=== PATIENT | male | born 1970 | race Caucasian/White ===

== ENCOUNTER 2016-06-08 16:32 | Emergency (ER) | payer MEDICAID ==
[2016-06-08 16:39] VITALS: O2SAT 95
[2016-06-08 19:51] LABS: COLOR YELLOW; LEUKOCYTE ESTERASE,URINE NEGATIVE (NEGATIVE); NITRITE,URINE NEGATIVE (NEGATIVE)
--- NOTE | 2016-06-08 19:58 | US ---
Left lower extremity venous Doppler examination. HISTORY: Pain. TECHNIQUE: Sonographic evaluation of the left lower extremity venous system was performed utilizing p ulsed and color flow Doppler evaluation along with compression and Valsalva maneuvers. FINDINGS: The deep venous system of left lower extremity is widely patent without evidence of venous thrombosis. Incidental note of mildly prominent lymph nodes within the left groin similar to prior examination of January 01, 2016 IMPRESSION: 1. No evidence of deep venous thrombosis, left lower extremity. Results called to Manny Mcconnell PA-C, at 8:00 PM.
[2016-06-08] MEDS ORDERED: KETOROLAC 15 MG/1 ML SDV IVP ONE (20:02)
--- NOTE | 2016-06-08 20:02 | EDPHY ---
H & P Stated Complaint: l leg pain into groin/has had mrsa in same leg this summer/ denies redness Time Seen by Provider: 06/08/16 17:26 HPI/ROS: CHIEF COMPLAINT: left leg pain HISTORY OF PRESENT ILLNESS: 46-year-old male presents emergency department complaining of left inner thigh pain radiating up into his groin intermittently x1 week that has been worse today. He denies fevers or chills, no redness or swelling. He denies urinary frequency, urgency or dysuria, no scrotal swelling or tenderness. Patient denies trauma, reports it feels similar to when he had an infection last year. Patient has not taken any medication for this. REVIEW OF SYSTEMS: A comprehensive 10 point review of systems is otherwise negative aside from elements mentioned in the history of present illness. Source: Patient Exam Limitations: No limitations - Personal History Current Tetanus/Diphtheria Vaccine: Yes Tetanus Vaccine Date: 01/2013 - Medical/Surgical History Hx Asthma: No Hx Chronic Respiratory Disease: No Hx Diabetes: No Hx Cardiac Disease: No Hx Renal Disease: No Hx Cirrhosis: No Hx Alcoholism: No Hx HIV/AIDS: No Hx Splenectomy or Spleen Trauma: No Other PMH: psh- RFA 2013 now chronic pain in low back & right knee. hep C. inguinal hernia repair. spider bite Jun 2012 - MRSA. HTN. PTSD, depression. - Social History Smoking Status: Former smoker - Physical Exam Exam: Physical Exam Gen: Alert and Oriented, NAD HEENT: PERRL, moist mucous membranes NECK: no meningismus CV: regular rate and regular rhythm PULM: CTAB, no wheezes ABDOMEN: soft, non tender to palpation, BS present : No scrotal swelling, erythema, tenderness, no lesions, circumcised penis with no discharge, redness, lesions BACK: No CVA tenderness NEURO: Neurologically grossly intact EXTREMITIES: normal appearing, left inner thigh with no erythema, mild tenderness to palpation to hip flexors and tenderness with straight leg raise, full full range of motion of left hip and knee, sensation intact to light touch , no lesions, no erythema, no warmth SKIN: no rash or break in skin on exposed skin PSYCH: answers questions appropriately. Constitutional: Initial Vital Signs Temperature (C) 36.7 C 06/08/16 16:36 Heart Rate 94 06/08/16 16:36 Respiratory Rate 16 06/08/16 16:36 Blood Pressure 165/107 H 06/08/16 16:36 O2 Sat (%) 95 06/08/16 16:36 O2 Delivery Mode Room Air Allergies/Adverse Reactions: hydrocodone [Hydrocodone] Allergy (Mild, Verified 06/08/16 16:34) Vomiting acetaminophen [From Tylenol] Allergy (Verified 06/08/16 16:34) Penicillins Allergy (Verified 06/08/16 16:34) Home Medications: Medication Instructions Recorded Flexeril 06/08/16 GABAPENTIN 06/08/16 Lisinopril 06/08/16 Naprosyn 06/08/16 Medical Decision Making ED Course/Re-evaluation: IV established, CBC, chemistry panel and urinalysis obtained all within normal. Ultrasound left lower extremity is negative for DVT or abscess. Patient is given 15 mg of IV Toradol, he is encouraged to use a heating pad or ice whichever feels better, ibuprofen 600 mg every 8 hours with food for pain and he is to follow up with this primary care doctor for re-evaluation for symptoms that are not improving. He is given strict return precautions for any fevers, redness, swelling, new symptoms or concerns. Differential Diagnosis: Diagnosis considered but not limited to muscle strain, cellulitis, infection - Data Points Laboratory Results: Laboratory Results 06/08/16 19:35 06/08/16 19:35 06/08/16 19:35 WBC 7.44 10^3/uL (3.80-9.50) RBC 5.34 10^6/uL (4.40-6.38) Hgb 14.8 g/dL (13.7-17.5) Hct 44.0 % (40.0-51.0) MCV 82.4 fL (81.5-99.8) MCH 27.7 L pg (27.9-34.1) MCHC 33.6 g/dL (32.4-36.7) RDW 13.1 % (11.5-15.2) Plt Count 256 10^3/uL (150-400) MPV 10.2 fL (8.7-11.7) Neut % (Auto) 43.7 % (39.3-74.2) Lymph % (Auto) 43.8 % (15.0-45.0) [place] % (Auto) 8.2 % (4.5-13.0) Eos % (Auto) 3.1 % (0.6-7.6) Baso % (Auto) 1.1 % (0.3-1.7) Nucleat RBC Rel Count 0.0 % (0.0-0.2) Absolute Neuts (auto) 3.25 10^3/uL (1.70-6.50) Absolute Lymphs (auto) 3.26 H 10^3/uL (1.00-3.00) Absolute Monos (auto) 0.61 10^3/uL (0.30-0.80) Absolute Eos (auto) 0.23 10^3/uL (0.03-0.40) Absolute Basos (auto) 0.08 10^3/uL (0.02-0.10) Absolute Nucleated RBC 0.00 10^3/uL (0-0.01) Immature Gran % 0.1 % (0.0-1.1) Immature Gran # 0.01 10^3/uL (0.00-0.10) Sodium 139 mEq/L (134-144) Potassium 4.6 mEq/L (3.5-5.2) Chloride 104 mEq/L (97-110) Carbon Dioxide 26 mEq/l (22-31) Anion Gap 9 mEq/L (8-16) BUN 16 mg/dL (7-23) Creatinine 0.9 mg/dL (0.7-1.3) Estimated GFR > 60 Glucose 115 H mg/dL (70-100) Calcium 8.9 mg/dL (8.5-10.4) Urine Color YELLOW Urine Appearance CLEAR Urine pH 7.0 (5.0-7.5) Ur Specific [place] 1.019 (1.002-1.030) Urine Protein NEGATIVE (NEGATIVE) Urine Ketones NEGATIVE (NEGATIVE) Urine Blood NEGATIVE (NEGATIVE) Urine Nitrate NEGATIVE (NEGATIVE) Urine Bilirubin NEGATIVE (NEGATIVE) Urine Urobilinogen NEGATIVE EU (0.2-1.0) Ur Leukocyte Esterase NEGATIVE (NEGATIVE) Ur Culture Indicated? NOT INDICATED (NI) Urine Glucose NEGATIVE (NEGATIVE) Medications Given: Discontinued Medications Ketorolac Tromethamine (Toradol) 15 mg IVP EDNOW ONE Stop: 06/08/16 20:03 Last Admin: 06/08/16 20:58 Dose: 15 mg Lisinopril (Zestril) 40 mg PO ONCE ONE Stop: 06/08/16 21:04 Last Admin: 06/08/16 21:04 Dose: 40 mg Departure - Departure Disposition: Home, Routine, Self-Care Clinical Impression: Left leg pain Condition: Good Instructions: Leg Pain (ED) Additional Instructions: Ice or heat whichever feels better, take 600 mg of ibuprofen every 8 hours with food for 3-5 days, follow up with your primary care doctor for symptoms that are not improving in the next 3-5 days, return to the emergency department for worsening symptoms, redness, swelling, fevers, any other questions or concerns. Referrals: Ariana Reyes MD [Primary Care Provider] - As per Instructions
[2016-06-08 20:04] LABS: % IMMATURE GRANULYOCYTES 0.1 % (0.0-1.1); ABSOLUTE IMMATURE GRANULOCYTES 0.01 10^3/uL (0.00-0.10); ADD DIFF? NO; ADD MORPH? NO; ADD SCAN? NO; ATYPICAL LYMPHOCYTE FLAG 10 (0-99); FRAGMENT RBC FLAG 0 (0-99); HEMOGLOBIN 14.8 g/dL (13.7-17.5); LEFT SHIFT FLG 0 (0-99); LIPEMIA HEMOLYSIS FLAG 80 (0-99); MEAN CELL HEMOGLOBIN 27.7 pg (27.9-34.1); MEAN CELL HEMOGLOBIN CONCENTR. 33.6 g/dL (32.4-36.7); MEAN CELL VOLUME 82.4 fL (81.5-99.8); MEAN PLATELET VOLUME 10.2 fL (8.7-11.7); PLATELET CLUMPS FLAG 0 (0-99); PLATELET COUNT 256 10^3/uL (150-400); RED BLOOD CELL COUNT 5.34 10^6/uL (4.40-6.38); RED CELL DISTRIBUTION WIDTH 13.1 % (11.5-15.2)
[2016-06-08 20:06] LABS: ANION GAP 9 mEq/L (8-16); CALCIUM 8.9 mg/dL (8.5-10.4); CARBON DIOXIDE 26 mEq/l (22-31); CHLORIDE 104 mEq/L (97-110); CREATININE 0.9 mg/dL (0.7-1.3); GLOMERULAR FILTRATION RATE > 60; GLUCOSE 115 mg/dL (70-100); POTASSIUM 4.6 mEq/L (3.5-5.2); SODIUM 139 mEq/L (134-144)
[2016-06-08] MEDS ORDERED: LISINOPRIL 40 MG TAB PO ONE (21:03)
[2016-06-08 21:06] VITALS: BP 160/101; PULSE 95; RESP 18; TEMP 98.8
[2016-06-09] MEDS ORDERED: LISINOPRIL 40 MG TAB PO SCH ×2 (09:00→20:37)
== END 2016-06-08 21:06 | disposition home or self-care (01) ==
DX: M79.605 Pain in left leg (principal); I10 Essential (primary) hypertension; Z87.891 Personal history of nicotine dependence
CPT/HCPCS: 96374; J1885

== ENCOUNTER 2017-05-15 07:02 | Emergency (ER) | payer MEDICAID ==
--- NOTE | 2017-05-15 07:10 | EDPHY ---
H & P Time Seen by Provider: 05/15/17 07:08 HPI/ROS: CHIEF COMPLAINT: N/V/D, chills HISTORY OF PRESENT ILLNESS: The patient is a 47 y/o male arriving via EMS from the [facility] complaining of acute onset vomiting, diarrhea, and chills around 23:00 last night, 8 hours ago. He has a history of cellulitis, osteomyelitis, and hepatitis C. He says, "my stomach's just tore up and fluid's coming out of both ends." He estimates he's had 11 episodes of non-bloody vomiting and 5 episodes of non-bloody diarrhea since onset. He complains of associated upper abdominal pain that is worse in his epigastrium and ongoing chills and shivering. No recent ill contacts or issues with recurrent cellulitis. He denies cough, sore throat, chest pain, dyspnea. He denies history of abdominal surgeries. REVIEW OF SYSTEMS: A ten point review of systems was performed and is negative with the exception of the items mentioned in the HPI. Past medical history: Hepatitis C, cellulitis and osteomyelitis in 2014, hypertension Past surgical history: surgery for cellulitis/osteomyelitis Family history: noncontributory Social history: Homeless, staying at [facility], no alcohol in 5 years, remote history IV drug use, no cigarettes in 25 years, PCP: [facility] General Appearance: Alert. Vital signs reviewed. 134/93, HR 101 at triage. Eyes: Pupils equal and round, no conjunctival injection, no discharge. Anicteric. ENT, Mouth: Mucous membranes are moist, no oropharyngeal erythema or edema. Neck: No lymphadenopathy, supple. Respiratory: Lungs are clear to auscultation; no wheezes, rales, or rhonchi. Cardiovascular: Tachycardic regular rate and rhythm; no murmur, rub, or gallop. Gastrointestinal: Abdomen is soft, diffusely moderately tender but subjectively more tender in epigastrium, no masses or organomegaly, bowel sounds hyperactive. Skin: Warm and dry, no rashes on exposed skin, normal color. Back: Nontender to palpation over the thoracolumbar spine. No CVAT. Extremities: No lower extremity edema, no calf tenderness or swelling. Neurological: Alert and oriented. Moving all four extremities easily and equally. Psychiatric: Normal affect. - Personal History Tetanus Vaccine Date: 01/2013 - Medical/Surgical History Hx Asthma: No Hx Chronic Respiratory Disease: No Hx Diabetes: No Hx Cardiac Disease: No Hx Renal Disease: No Hx Cirrhosis: No Hx Alcoholism: No Hx HIV/AIDS: No Hx Splenectomy or Spleen Trauma: No Other PMH: psh- RFA 2012 now chronic pain in low back & right knee. hep C. inguinal hernia repair. spider bite Jun 2012 - MRSA. HTN. PTSD, depression. - Social History Smoking Status: Former smoker Constitutional: Initial Vital Signs Temperature (C) 37.3 C 05/15/17 07:26 Heart Rate 101 H 05/15/17 07:26 Respiratory Rate 16 05/15/17 07:26 Blood Pressure 134/93 H 05/15/17 07:26 O2 Sat (%) 96 05/15/17 07:26 O2 Delivery Mode Room Air O2 (L/minute) 2 Allergies/Adverse Reactions: hydrocodone [Hydrocodone] Allergy (Mild, Verified 06/08/16 16:34) Vomiting acetaminophen [From Tylenol] Allergy (Verified 06/08/16 16:34) Penicillins Allergy (Verified 06/08/16 16:34) Medical Decision Making - Diagnostics Imaging: Discussed imaging studies w/ call center agent Radiologist ED Course/Re-evaluation: This is a pleasant 47 y/o male with history of cellulitis and osteomyelitis who presents with an 8-hour history of vomiting, diarrhea, and chills. He has moderate diffuse abdominal tenderness, is tachycardic, and appears uncomfortable on exam. Plan for IV, labs, and symptom management. 1L IV NS and 4mg IV Zofran administered. Patient re-evaluated at 8:00 a.m.. He is sleeping soundly. He continues to be tachycardic with heart rate of 103. He has received 1 L of normal saline intravenously. A 2nd L is been ordered. Liver functions, transaminases, are very mildly elevated. Lipase is normal. Alkaline phosphatase is normal. White blood cell count is within normal range. He is not anemic. I doubt that this is ascending cholangitis or cholecystitis. Nothing to suggest pancreatitis laboratory work. He is known to have a history of hepatitis C, thus far untreated. 1030: Reevaluated patient. He continues to have moderate periumbilical tenderness, worse on the left side. He has not had an episode of vomiting or diarrhea here. He remains tachycardic around 110. I've recommended an abdominal CT due to his continued pain and tenderness on exam, which he agrees to. 1100: Patient is sleeping soundly. 1200: CT shows possible gastroenteritis and left basilar opacity that could represent early pneumonia. He is not tachypneic or tachycardic and his lungs are clear. No fever. I do not find signs of pneumonia. Patient has refused to provide stool or urine samples. Patient has tolerated PO fluids without issue. Case management has discussed options for follow up and warming shelters available tonight. He will receive a script for Zofran as well as standard gastroenteritis care and follow up instructions. Return precautions discussed. He is noted to have continued tachycardia and hypertension. He agrees with plan for discharge. Differential Diagnosis: Abdominal pain including but not limited to appendicitis, cholecystitis, ascending cholangitis, pancreatitis, gastroenteritis, gastritis and urinary tract infection. - Data Points Laboratory Results: Laboratory Results 05/15/17 07:13 05/15/17 07:13 Medications Given: Discontinued Medications Hydromorphone HCl (Dilaudid) 0.5 mg IVP EDNOW ONE Stop: 05/15/17 10:34 Last Admin: 05/15/17 11:05 Dose: 0.5 mg Sodium Chloride (Ns) 1,000 mls @ 0 mls/hr IV EDNOW ONE; Wide Open PRN Reason: Protocol Stop: 05/15/17 07:19 Last Admin: 05/15/17 07:23 Dose: 1,000 mls Sodium Chloride (Ns) 1,000 mls @ 0 mls/hr IV EDNOW ONE; Wide Open PRN Reason: Protocol Stop: 05/15/17 08:00 Last Admin: 05/15/17 08:02 Dose: 1,000 mls Sodium Chloride (Ns) 1,000 mls @ 0 mls/hr IV EDNOW ONE; Wide Open PRN Reason: Protocol Stop: 05/15/17 08:00 Last Admin: 05/15/17 08:47 Dose: 1,000 mls Sodium Chloride (Ns) 1,000 mls @ 3,000 mls/hr IV ONCE ONE Stop: 05/15/17 11:45 Last Admin: 05/15/17 11:27 Dose: 1,000 mls Ondansetron HCl (Zofran) 4 mg IVP EDNOW ONE Stop: 05/15/17 07:19 Last Admin: 05/15/17 07:24 Dose: 4 mg Ondansetron HCl (Zofran Odt 4 Mg Prepack#2) 1 btl TAKEHOME EDNOW ONE Stop: 05/15/17 13:12 Last Admin: 05/15/17 13:27 Dose: 1 btl Departure - Departure Disposition: Home, Routine, Self-Care Clinical Impression: Nausea vomiting and diarrhea, Gastroenteritis Condition: Good Instructions: Ondansetron (By mouth), Acute Nausea and Vomiting (ED) Additional Instructions: 1. Take Zofran as prescribed for nausea and vomiting. 2. Use Imodium as directed on the packaging for diarrhea. 3. Follow up with your primary care provider for unimproved symptoms over the next few days. Referrals: [facility],. [Clinic] - As per Instructions Report Scribed for: Swati Kevin Report Scribed by: Chasidy Vogel Date of Report: 05/15/17 Time of Report: 07:36 Physician Review and Approval Statement: 05/15/17 07:10 Portions of this note were transcribed by the [facility] [facility]. I, Dr. Swati Kevin, personally performed the history, physical exam, and medical decision- making; and confirmed the accuracy of the information in the transcribed note.
[2017-05-15] MEDS ORDERED: NS 1,000 ML IV ONE ×4 (07:18→11:26)
[2017-05-15] MEDS ORDERED: ONDANSETRON 4 MG/2 ML VIAL IVP ONE (07:18)
[2017-05-15] MEDS ORDERED: ONDANSETRON 4 MG/2 ML VIAL ONE (07:19)
[2017-05-15 07:28] VITALS: RESP 16
[2017-05-15 07:29] LABS: PLATELET COUNT 211 10^3/uL (150-400)
[2017-05-15] MEDS ORDERED: HYDROmorphONE/DILAUDID 1 MG/ML INJ IVP ONE (10:33)
[2017-05-15] MEDS ORDERED: IOPAMIDOL (ISOVUE-300) 100 ML BTL ONE (10:56)
[2017-05-15] MEDS ORDERED: ONDANSETRON 4MG PREPACK#2 BTL TAKEHOME ONE (13:11)
[2017-05-15 13:45] VITALS: BP 134/92; PULSE 110; TEMP 99; O2SAT 91
== END 2017-05-15 13:45 | disposition home or self-care (01) ==
DX: K52.9 Noninfective gastroenteritis and colitis, unspecified (principal); E86.9 Volume depletion, unspecified; I10 Essential (primary) hypertension; Z87.891 Personal history of nicotine dependence
CPT/HCPCS: 96374; J1170; J2405; Q9967

== ENCOUNTER 2017-06-09 09:35 | Emergency (ER) | payer MEDICAID ==
[2017-06-09 09:44] VITALS: RESP 18
[2017-06-09] MEDS ORDERED: DEXAMETHASONE 4 MG TAB PO ONE (10:18)
[2017-06-09] MEDS ORDERED: IPRATROPIUM/ALBUTEROL 3 ML DEYVIAL IH ONE (10:18)
--- NOTE | 2017-06-09 10:21 | EDPHY ---
General Time Seen by Provider: 06/09/17 10:07 Narrative: CHIEF COMPLAINT: Cough, weakness, body aches HISTORY OF PRESENT ILLNESS: Patient presents with complaints of 2 weeks history of flu-like symptoms. This includes cough, body aches, weakness, nausea, sore throat, runny nose. These have been constant duration. He is had 2 visits at [facility] with 1 dose of steroids and just started antibiotics yesterday. He has had no improvement with the albuterol inhaler that they provided him. No chest pain but he does have a painful cough at times. No neck pain or stiffness. No headache. No vomiting or diarrhea. No bleeding from any site. No trauma or injury. No other associated complaints or modifying factors. He is currently homeless living at a [facility] REVIEW OF SYSTEMS: Ten systems reviewed and are negative unless otherwise noted in the HPI PCP: Seymour Reyes SPECIALISTS: None PAST MEDICAL HISTORY: Denies any ongoing medical diagnoses PAST SURGICAL HISTORY: No recent surgery SOCIAL HISTORY: Remote smoking history. No alcohol or drug use. Works intermittently "as I can " FAMILY HISTORY: Noncontributory EXAMINATION General Appearance: Alert, no distress, unkempt Head: normocephalic, atraumatic Eyes: Pupils equal and round, no conjunctival pallor or injection. EOMs intact ENT, Mouth: Mucous membranes moist. Airway patent. No erythema or edema. Poor dentition Neck: Normal inspection, supple, non-tender. No meningeal signs Respiratory: Mild rhonchi and wheezing. No crackles. No diminishment. No retractions or distress Cardiovascular: Regular rate and rhythm. No murmur Gastrointestinal: Abdomen is soft and nontender Back: non-tender, no bony abnormalities Neurological: GCS 15. A&O, nonfocal, normal gait Skin: Warm and dry, no rash. No petechiae or purpura Extremities: Nontender, no pedal edema Psychiatric: Mood and affect normal DIFFERENTIAL DIAGNOSES: Including but not limited to influenza, acute bronchitis, viral bronchitis, bacterial bronchitis, lower respiratory infection, upper respiratory infection, community-acquired pneumonia MDM: 10:15 a.m. Two weeks of cough with increasing weakness, fatigue, body aches, fevers, sore throat and runny nose. He has examination suggest bronchitis versus influenza. Less likely pneumonia. His vital signs are all within normal limits with no need for supplemental oxygen. He has been on 2 different antibiotics with no improvement, further supporting the likelihood of viral etiology. I have ordered a chest x-ray as he has not yet had this performed. He is in no acute distress. 10:55 a.m. Chest x-ray is negative for pneumonia. Influenza was negative. I do feel the patient's symptoms are consistent with flu-like diagnoses despite a negative flu test. He has no pneumonia. Vital signs are all within normal limits. He has no chest pain. I do not feel he warrants any further testing at this time. I do think he should continue his Augmentin and albuterol that was previously prescribed. I will add a cough medicine for him. Discharged home stable condition with instructions to follow up with primary care physician. We discussed ED precautions. He is stable at time of discharge SUPERVISION: Patient was independently examined, but I discussed the case with my secondary supervising physician Dr. Boo - Diagnostics Imaging Results: Imaging Impressions Chest X-Ray 06/09/17 10:18 Impression: Stable negative chest. No acute pneumonia identified.. - History Smoking Status: Former smoker - Objective Vital Signs: Initial Vital Signs Temperature (C) 98.1 F 06/09/17 09:41 Heart Rate 81 06/09/17 09:41 Respiratory Rate 18 06/09/17 09:41 Blood Pressure 141/91 H 06/09/17 09:41 O2 Sat (%) 95 06/09/17 09:41 Allergies/Adverse Reactions: hydrocodone [Hydrocodone] Allergy (Mild, Verified 06/08/16 16:34) Vomiting acetaminophen [From Tylenol] Allergy (Verified 06/08/16 16:34) Penicillins Allergy (Verified 06/08/16 16:34) Home Medications: Medication Instructions Recorded Amoxicillin/Clavulanate Pot 875 mg PO 06/09/17 [Augmentin 875 MG TAB (*)] Benzonatate [Tessalon Pearles (RX)] 100 mg PO Q8 PRN #15 cap 06/09/17 Laboratory Results: 06/09/17 09:55 Nasal Influenza A PCR NEGATIVE FOR FLU A (NEGATIVE) Nasal Influenza B PCR NEGATIVE FOR FLU B (NEGATIVE) Medications Given: Discontinued Medications Albuterol/Ipratropium (Duoneb) 3 ml IH EDNOW ONE Stop: 06/09/17 10:19 Last Admin: 06/09/17 10:30 Dose: 3 ml Dexamethasone (Decadron) 8 mg PO EDNOW ONE Stop: 06/09/17 10:19 Last Admin: 06/09/17 10:30 Dose: 8 mg Departure - Departure Disposition: Home, Routine, Self-Care Clinical Impression: Acute bronchitis Qualifiers: Bronchitis organism: unspecified organism Qualified Code(s): J20.9 - Acute bronchitis, unspecified Condition: Good Instructions: Acute Bronchitis (ED), Influenza (ED) Additional Instructions: 1. Continue your Augmentin as prescribed 2. Continue albuterol inhaler as prescribed 3. Cough medication as prescribed as needed 4. Follow up with primary care physician 5. ED precautions as discussed Referrals: Ariana Reyes MD [Primary Care Provider] - As per Instructions Prescriptions: Benzonatate [Tessalon Pearles (RX)] 100 mg PO Q8 PRN #15 cap PRN Reason: Cough, Mild
[2017-06-09 11:04] VITALS: BP 138/61; PULSE 71; TEMP 98.2; O2SAT 96
== END 2017-06-09 11:04 | disposition home or self-care (01) ==
LOC: EDUNIT#
DX: J20.9 Acute bronchitis, unspecified (principal); Z87.891 Personal history of nicotine dependence

== ENCOUNTER 2017-11-09 19:59 | Emergency (ER) | payer MEDICAID ==
[2017-11-09 20:08] VITALS: BP 137/95
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
[2017-11-09] MEDS ORDERED: IBUPROFEN 800 MG TAB PO ONE (20:42)
[2017-11-09] MEDS ORDERED: SULFAMET/TMP DS PREPACK#2 BTL TAKEHOME ONE (20:42)
[2017-11-09] MEDS ORDERED: SULFAMETHOX/TMP 800/160 MG 1 TAB PO ONE (20:42)
== END 2017-11-09 20:57 | disposition home or self-care (01) ==
DX: L05.91 Pilonidal cyst without abscess (principal); I10 Essential (primary) hypertension; Z76.0 Encounter for issue of repeat prescription; Z87.891 Personal history of nicotine dependence

== ENCOUNTER 2017-11-10 16:40 | Emergency (ER) | payer MEDICAID ==
--- NOTE | 2017-11-10 16:50 | EDPHY ---
H & P - Personal History Tetanus Vaccine Date: 01/2013 - Medical/Surgical History Hx Asthma: No Hx Chronic Respiratory Disease: No Hx Diabetes: No Hx Cardiac Disease: No Hx Renal Disease: No Hx Cirrhosis: No Hx Alcoholism: No Hx HIV/AIDS: No Hx Splenectomy or Spleen Trauma: No Other PMH: psh- RFA 2012 now chronic pain in low back & right knee. hep C. inguinal hernia repair. spider bite Jun 2012 - MRSA. HTN. PTSD, depression. - Social History Smoking Status: Former smoker Time Seen by Provider: 11/10/17 16:49 Constitutional: Initial Vital Signs Temperature (C) 36.7 C 11/10/17 17:18 Heart Rate 75 11/10/17 17:18 Respiratory Rate 18 11/10/17 17:18 Blood Pressure 143/98 H 11/10/17 17:18 O2 Sat (%) 98 11/10/17 17:18 O2 Delivery Mode Room Air Allergies/Adverse Reactions: hydrocodone [Hydrocodone] Allergy (Mild, Verified 11/09/17 20:07) Vomiting acetaminophen [From Tylenol] Allergy (Verified 11/09/17 20:07) Penicillins Allergy (Verified 11/09/17 20:07) Home Medications: Medication Instructions Recorded Ibuprofen [Motrin (*)] 800 mg PO Q6-8PRN #10 tab 11/09/17 Sulfamethox/Tmp 800/160 mg 1 tab PO BID@1000,2200 #14 tab 11/09/17 [Bactrim Ds] Medical Decision Making ED Course/Re-evaluation: CHIEF COMPLAINT: Suicidal ideation sent from [facility] HISTORY OF PRESENT ILLNESS: The patient is a 47 y/o male arriving on an M1 hold from the [facility] for suicidal ideations. Per the M1 hold, the patient wants to jump off a building and is having visual hallucinations. These hallucinations are impacting his eating, sleeping, and concentration. Denies chest pain, shortness of breath, abdominal pain, urinary or bowel complaints. REVIEW OF SYSTEMS: A 10 point review of systems was performed and is negative with the exception of the elements mentioned in the history of present illness. PHYSICAL EXAM: HR, BP, O2 Sat, RR. Temp noted General Appearance: Alert, well hydrated, appropriate, and non-toxic appearing. Head: Atraumatic without scalp tenderness or obvious injury Eyes: Pupils equal, round, reactive to light and accommodation, EOMI, no trauma , no injection. Ears: Clear bilaterally, no perforation, normal landmarks Nose: Atraumatic, no rhinorrhea, clear. Throat: There is no erythema or exudates, no lesions, normal tonsils, mucus membranes moist. Neck: Supple, 2+ carotid upstroke, nontender, no lymphadenopathy. Respiratory: No retractions, no distress, no wheezes, and no accessory muscle use. Lungs are clear to auscultation bilaterally. Cardiovascular: Regular rate and rhythm, no murmurs, rubs, or gallops. Bilateral carotid, radial, dorsalis pedis, and posterior tibial pulses intact. Good capillary refill all extremities. Gastrointestinal: Abdomen is soft, nontender, non-distended, no masses, no rebound, no guarding, no peritoneal signs. Musculoskeletal: Normal active ROM of all extremities, atraumatic. Neurological: Alert, appropriate, and interactive. The patient has normal DTRs and non-focal cranial nerves, motor, sensory, and cerebellar exam. Skin: No rashes, good turgor, no nodules on palpation. Psych: Expresses suicidal ideations. Past medical history: Chronic pain in low back & right knee, Hep C, MRSA, hypertension, PTSD, depression Past surgical history: RFA 2013, inguinal hernia repair Family history: Denies Social history: Transient, single, not employed DIFFERENTIAL DIAGNOSIS: The differential diagnosis for the patient's depression included but was not limited to functional and major depression, situational depression, medication side effect, drugs, and alcohol abuse. MEDICAL DECISION MAKING: The patient is a 47 y/o male arriving on an M1 hold from the [facility] for suicidal ideations. On exam he does express suicidal ideations. Patient will need a psychiatric evaluation, labs ordered. 182: Patient is positive for amphetamines. 2100: Patient care turned over to Dr. Carrillo at shift change. EPS evaluation still pending. (Reji Dennis) Patient has remained stable on my shift. Care to Dr. Martínez at 11:20 p.m. ( Jozef Carrillo) 0700AM: No acute events overnight. Sleeping. Signed over to Dr. Garvin 7Am Shift change. (Matthew Martínez) 7:00 a.m.-I assumed care of this patient at shift change. Mental health re- evaluation pending. 8:30 a.m.-seen by mental health, felt appropriate for inpatient disposition. Looking for disposition now. 3p: signed over to Dr. Dennis at shift change. (Peggy Rob) - Data Points Laboratory Results: Laboratory Results 11/10/17 16:58 11/10/17 16:58 Departure - Departure Disposition: Other Psych, Not [facility] Clinical Impression: Suicidal ideation Condition: Fair Referrals: NONE *PRIMARY CARE P,. [Primary Care Provider] - As per Instructions Report Scribed for: Reji Dennis Report Scribed by: Trudy Garrett Date of Report: 11/10/17 Time of Report: 18:27
[2017-11-10 17:30] LABS: PLATELET COUNT 278 10^3/uL (150-400)
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
[2017-11-11 16:54] VITALS: BP 153/103
== END 2017-11-11 18:40 ==
LOC: EDUNIT#
DX: R45.851 Suicidal ideations (principal); I10 Essential (primary) hypertension; Z87.891 Personal history of nicotine dependence
CPT/HCPCS: 80305; G0480

== ENCOUNTER 2018-05-17 08:23 | Emergency (ER) | payer MEDICAID ==
[2018-05-17 08:35] VITALS: BP 145/98
[2018-05-17] MEDS ORDERED: IPRATROPIUM/ALBUTEROL 3 ML DEYVIAL IH ONE ×2 (08:35→08:36)
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
== END 2018-05-17 08:50 | disposition home or self-care (01) ==
LOC: EDUNIT#
DX: J18.9 Pneumonia, unspecified organism (principal); I10 Essential (primary) hypertension; F32.9 Major depressive disorder, single episode, unspecified; F43.10 Post-traumatic stress disorder, unspecified; Z87.891 Personal history of nicotine dependence; Z86.14 Personal history of Methicillin resistant Staphylococcus aureus infection; Z88.0 Allergy status to penicillin; Z59.0 Homelessness

== ENCOUNTER 2018-06-01 02:17 | Emergency (ER) | payer MEDICAID ==
--- NOTE | 2018-06-01 04:29 | EDPHY ---
H & P Stated Complaint: can't feel R first toe Time Seen by Provider: 06/01/18 03:53 HPI/ROS: HPI The patient presents with numbness and tingling of his right great toe which has been present for the last several hours. He thinks because he has been outside in his feet got cold in his boots. It is noted that he is coming in from the ICU waiting room where he was kicked out just prior to arrival.. REVIEW OF SYSTEMS 10 systems were reviewed and negative with the exception of the elements mentioned in the history of present illness. PMHx: History of chronic hepatitis-C, PTSD Soc Hx: Homeless PHYSICAL General Appearance: Alert, no distress Eyes: Pupils equal and round no pallor or injection ENT, Mouth: Mucous membranes moist Respiratory: There are no retractions, lungs are clear to auscultation Cardiovascular: Regular rate and rhythm Gastrointestinal: Abdomen is soft and non-tender, no masses, bowel sounds normal Neurological: A&O, moves all extremities Skin: Warm and dry, no rashes Musculoskeletal: Neck is supple non tender Extremities: symmetrical, full range of motion, toes appear normal with full range of motion, entire foot is warm with brisk capillary refill, sensation is intact to light touch of all of his toes Psychiatric: Patient is oriented X 3, there is no agitation Source: Patient Exam Limitations: No limitations - Personal History Current Tetanus/Diphtheria Vaccine: Yes Tetanus Vaccine Date: 01/2013 - Medical/Surgical History Hx Asthma: No Hx Chronic Respiratory Disease: No Hx Diabetes: No Hx Cardiac Disease: No Hx Renal Disease: No Hx Cirrhosis: No Hx Alcoholism: No Hx HIV/AIDS: No Hx Splenectomy or Spleen Trauma: No Other PMH: hepc +, PTSD, depression - Social History Smoking Status: Never smoked Constitutional: Initial Vital Signs Temperature (C) 36.4 C 06/01/18 02:26 Heart Rate 81 06/01/18 02:26 Respiratory Rate 16 06/01/18 02:26 Blood Pressure 163/103 H 06/01/18 02:26 O2 Sat (%) 93 06/01/18 02:26 O2 Delivery Mode Room Air Allergies/Adverse Reactions: hydrocodone [Hydrocodone] Allergy (Mild, Verified 06/01/18 02:29) Vomiting acetaminophen [From Tylenol] Allergy (Verified 06/01/18 02:29) Penicillins Allergy (Verified 06/01/18 02:29) Home Medications: Medication Instructions Recorded NK [No Known Home Meds] 06/01/18 Medical Decision Making Differential Diagnosis: 48-year-old homeless man presents with paresthesias of right great toe. On exam he has a normal neurologic evaluation, foot is warm with normal circulation. It could be that his toe became cold being outside and now that he is indoors his symptoms have improved. There is no sign of frostbite here. He does not have any neurologic deficit to suggest CVA. He will be discharged. Departure - Departure Disposition: Home, Routine, Self-Care Clinical Impression: Paresthesia, Homeless Condition: Good Instructions: Frostbite (ED) Referrals: [facility],. [Clinic] - As per Instructions
[2018-06-01 05:41] VITALS: BP 162/102
== END 2018-06-01 05:41 | disposition home or self-care (01) ==
DX: R20.0 Anesthesia of skin (principal); R20.2 Paresthesia of skin; Z59.0 Homelessness